=== PATIENT | male | born 2000 | race Caucasian/White ===

== ENCOUNTER 2024-12-04 09:18 | Emergency (ER) | payer OTHER, SELFPAY ==
[2024-12-04 09:29] VITALS: BP 150/66; PULSE 66; RESP 16; TEMP 36.9; O2SAT 100; BMI 31.4
--- NOTE | 2024-12-04 11:34 | ED.GIBLEED ---
HPI - GI Bleed <Kitty Reyes PA-C - Last Filed: 12/04/24 11:59> General Chief complaint: GI Bleed Stated complaint: Check to see if he has Hemorrhoids sent from [facility] Time Seen by Provider: 12/04/24 11:13 Mode of arrival: Ambulatory History of Present Illness HPI Narrative: Mr. Santizo is a very pleasant 24-year-old male with no reported past medical history, active duty [employer], who presents to the emergency department for a blood tinged bowel movement earlier today. Patient was sent from [facility] for further evaluation of possible hemorrhoids. Patient states his last normal bowel movement was on Sunday, he has been constipated for the last few days, and today while attempting to have a bowel movement he was having to bear down and he passed small amount of soft/liquid stool or diarrhea and at the very end of the bowel movement he developed sharp pain in the anus/rectum and noticed a small streak of bright red blood on his stool in the toilet. After having the bowel movement his pain resolved. He denies engaging in anal sex or anything going into the anus/rectum. He does not typically struggle with constipation. He denies abdominal pain, nausea, vomiting, fevers, chills, dysuria, hematuria. Related Data Previous Rx's Medication Instructions Recorded polyethylene glycol 3350 17 17 g PO DAILY 30 days #119 grams 12/04/24 gram/dose oral powder (Miralax) Review of Systems <Kitty Reyes PA-C - Last Filed: 12/04/24 11:59> Review of Systems ROS Unobtainable: All systems reviewed & are unremarkable except as noted in HPI and below Patient History <Kitty Reyes PA-C - Last Filed: 12/04/24 11:59> Social History Smoking Status: Never smoker Smoking Status: Never smoker Exam <Kitty Reyes PA-C - Last Filed: 12/04/24 11:59> Narrative Exam Narrative: GENERAL: 24 year old patient appears stated age. Well-developed patient, in no acute distress. HEAD: Atraumatic. Normocephalic. NECK: Trachea midline. Cervical ROM intact. CARDIOVASCULAR: Regular rate and rhythm. RESPIRATORY: ?Nonlabored respirations. ?Speaking in clear, full sentences. ?Clear to auscultation. Breath sounds equal bilaterally. No wheezes, rales, or rhonchi. ? GASTROINTESTINAL: Abdomen soft, non-tender, nondistended. Mild diastasis recti. Patient gave verbal consent for external rectal visualization but declines internal rectal exam. Nurse insulation helper present. Patient has normal appearing anus with no hemorrhoid, skin tag, abscess or other abnormality. Light brown stool is present around the anus, no bleeding. EXTREMITIES: No edema or joint tenderness. NEURO: AOx3. ?Clear speech. ?Moves all 4 extremities appropriately. SKIN: No rash or erythema of visible areas Initial Vital Signs Initial Vital Signs: Vital Signs Temperature 98.4 F 12/04/24 09:29 Pulse Rate 66 12/04/24 09:29 Respiratory Rate 16 12/04/24 09:29 Blood Pressure 150/66 H 12/04/24 09:29 Pulse Oximetry 100 12/04/24 09:29 Oxygen Delivery Method Room Air 12/04/24 09:29 <Jay Mcdonough MD - Last Filed: 12/04/24 18:24> Initial Vital Signs Initial Vital Signs: Vital Signs Temperature 98.4 F 12/04/24 09:29 Pulse Rate 66 12/04/24 09:29 Respiratory Rate 16 12/04/24 09:29 Blood Pressure 150/66 H 12/04/24 09:29 Pulse Oximetry 100 12/04/24 09:29 Oxygen Delivery Method Room Air 12/04/24 09:29 Course <Kitty Reyes PA-C - Last Filed: 12/04/24 11:59> Vital Signs Vital signs: Vital Signs - 8 hr 12/04/24 12:01 Temperature 98 F Pulse Rate 79 Respiratory Rate 16 Blood Pressure 137/72 Pulse Oximetry 98 Oxygen Delivery Method Room Air <Jay Mcdonough MD - Last Filed: 12/04/24 18:24> Vital Signs Vital signs: Vital Signs - 8 hr 12/04/24 12:01 Temperature 98 F Pulse Rate 79 Respiratory Rate 16 Blood Pressure 137/72 Pulse Oximetry 98 Oxygen Delivery Method Room Air MDM - GI Bleed <SUSIE Andino Last Filed: 12/04/24 11:59> Medical Records Medical records narrative: None available for review MDM Narrative Medical decision making narrative: 24-year-old male with no reported past medical history, active duty [employer], who presents to the emergency department for a blood tinged bowel movement earlier today. Differential diagnosis includes but is not limited to anal fissure, hemorrhoid, constipation, diverticulitis, diverticulosis, colonic polyp, perirectal abscess, etc. On exam patient is in no acute distress, nontoxic appearing, vital signs appropriate, abdomen soft and nontender. He declines internal rectal exam. Visualization of anus reveals no external hemorrhoids, obvious fissures, skin tags, abscess or other abnormalities, light brown stool present around the anus, no obvious bleeding. History concerning for possible small anal fissure given recent constipation. No black stools, no large amount of blood. Discussed with the patient that because he declines rectal exam at this time, we can treat supportively as possible fissure with MiraLax to soften bowel movements, Aquaphor/Vaseline around the anus, warm Sitz baths. However discussed that if his symptoms get any worse he needs to return to the ER for further management. Recommended follow up with PCP and colonoscopy. He verbalized understanding all information is agreeable to this plan. He is stable for discharge home. Discharge Plan Departure Patient Disposition: Home Clinical Impression: Constipation Qualifiers: Constipation type: unspecified constipation type Qualified Code(s): K59.00 - Constipation, unspecified Instructions: DI for Constipation, DI for Anal Fissure Activity Restrictions/Additional Instructions: Dear Vanessa Sukhdev, Thank you for coming to the emergency department. Today you were evaluated for rectal pain and some blood in your bowel movement. At this time and do not see any signs of external hemorrhoids or abscess or infection of the anus. We did not perform an internal rectal exam today because you did not want this, but as we discussed if your symptoms get any worse it will be very important perform this exam. At this time I am concerned your symptoms are because of constipation causing an anal fissure which is a small cut in the anus. Please use MiraLax daily and increase your water intake to help soften bowel movements. You may apply Vaseline or Aquaphor directly to the anus and you may also take warm Sitz baths to help. Please return to the emergency department immediately if you develop severe abdominal or rectal pain, fevers or chills, large amounts of blood in your stool, or any concerns. If your symptoms improve, please follow up with your primary care doctor, and you will also likely need a colonoscopy to be scheduled. Please follow up with your primary care doctor within the next 2-3 days for ER follow-up. (If you do not have a PCP you can call [phone]. ?to schedule an appointment with an [facility] Primary Care Provider) IF YOU DEVELOP ANY NEW OR WORSENING SYMPTOMS, RETURN TO THE ER! Please read the attached instructions, they highlight more specific treatments and interventions for you at home. Thank you for letting me participate in your care, Kitty Reyes PA-C Prescriptions: New polyethylene glycol 3350 [Miralax] 17 gram/dose powder 17 g PO DAILY 30 Days Qty: 119 0RF Referrals: ProviderManoj [Primary Care Provider] - Stand Alone Forms: Patient Portal/API/Survey ED Sign-out <Jay Mcdonough MD - Last Filed: 12/04/24 18:24> Cosign ED Attending Juan Franciscoature Attestation: I was immediately available in the department for consultation. This documentation has been reviewed and I agree with assessment and plan. Supervised by Jay Mcdonough MD
[2024-12-04 12:01] VITALS: BP 137/72; PULSE 79; RESP 16; TEMP 36.6; O2SAT 98
== END 2024-12-04 12:02 | disposition home or self-care (01) ==
PROVIDERS: Emergency Provider Physician Assistant
DX: K59.00 Constipation, unspecified (principal)
CPT/HCPCS: 99281